=== PATIENT | female | born 2000 | race Two or more races ===

== ENCOUNTER 2024-08-25 05:17 | Observation (INO) | payer MEDICAID, SELFPAY ==
[2024-08-25] VITALS (53 sets, daily range): BP systolic 93–136; BP diastolic 51–76; PULSE 73–112; RESP 16–98; TEMP 36.6–36.9; O2SAT 94–100; BMI 39.7
--- NOTE | 2024-08-25 06:05 | XR_ITS ---
Examination: Complete OB ultrasound greater than 14 weeks Date and time of exam: August 25, 2024 0622 hrs. Indications: Beginning in labor 4:00 AM this morning with vaginal bleeding and pelvic contractions Findings: Viable intrauterine single fetus with single amniotic sac presentation cephalic Cardiac motion 138 BPM Placenta posterior grade 2, the technologist describes early placental abruption but there are no images with measurements or convincing abruption on this study Umbilical cord insertion seen Amniotic fluid index 13.2 cm spine maternal right posterior Cervix 2.9 cm Right ovary 4.3 x 2.1 x 2.9 cm arterial flow Left ovary obscured by bowel gas. Composite estimated gestational age based on BPD, head circumference, abdominal circumference, femur length is 29 weeks 4 days Estimated weight 1399 g. Survey of intracranial anatomy, spinal anatomy, abdominal anatomy, four-chamber heart performed with no abnormalities identified. Impression: Viable intrauterine gestation cephalic presentation Estimated gestational age 29 weeks 4 days Placenta posterior grade 2, recommend repeating this study at this time with multiple images of the placenta to exclude early placental abruption.
[2024-08-25] MEDS: BETAMET ACET/BETAMET NA PH (Celestone) 6 MG/ML VIAL 12 MG IM (08:25)
--- NOTE | 2024-08-25 08:50 | XR_ITS ---
Examination: Complete OB ultrasound greater than 14 weeks Date and time of exam: August 25, 2024 0908 hrs. Indications: Vaginal bleeding and pelvic cramping beginning yesterday, early abruption on OB Y sonogram August 25, 2024 0622 hrs. Findings: Viable intrauterine single fetus with single amniotic sac presentation cephalic Cardiac motion 153 BPM Placenta posterior grade 2 partial abruption inferior edge of the placenta Umbilical cord insertion seen Amniotic fluid index 12.4 cm Cervix 3.8 cm Right ovary 3.6 x 3.1 cm arterial flow Left ovary obscured by bowel gas. Composite estimated gestational age based on BPD, head circumference, abdominal circumference, femur length is 30 weeks 0 days Estimated weight 1430 g. Survey of intracranial anatomy, spinal anatomy, abdominal anatomy, four-chamber heart performed with no abnormalities identified. Impression: Viable intrauterine gestation cephalic presentation Inferior placenta abruption, sagittal image 58, measuring up to 30 mm in dimension, suggest continued follow-up
[2024-08-25 09:19] LABS: Basophils % (Auto) 0 % (0-2.5); Eosinophils # (Auto) 0.1 Thou/mm3 (0.0-0.5); Eosinophils % (Auto) 1 % (0-10); Hematocrit 34.7 % (36.0-46.0); Hemoglobin 11.8 g/dL (12.0-16.0); Immature Granulocytes % (Auto) 1 % (0-0); Immature Granulocytes Auto 0.06 Thou/mm3 (0.00-0.00); Lymphocytes % (Auto) 19 % (10-50); Mean Corpuscular Hemoglobin 29.9 pg (25.0-35.0); Mean Corpuscular Volume 88 fL (80-100); Monocytes # (Auto) 0.8 Thou/mm3 (0.0-0.8); Monocytes % (Auto) 8 % (0-12); Neutrophils # (Auto) 7.4 Thou/mm3 (1.8-7.7); Neutrophils % (Auto) 71 % (37-80); Nucleated Red Blood Cell % 0 /100 WBC (0); Platelet Count 248 Thou/mm3 (140-440); RDW Standard Deviation 41.6 fL (36.4-46.3); Red Blood Count 3.94 Miln/mm3 (4.00-5.20); White Blood Count 10.3 Thou/mm3 (3.6-11.0)
--- NOTE | 2024-08-25 11:06 | ESHP_ITS ---
RE: BILL MCDANIELS : 2000 DATE OF ADMISSION: 08/25/2024 HISTORY OF PRESENT ILLNESS: This is a 24-year-old 3, para 1-0-1-1 with due date of 11/10 with intrauterine at 29 weeks and 0 days who presents to labor and delivery complaining of spot of blood seen after voiding early this morning. The patient has subsequently had no bleeding noted. She denies any contractions. She reports normal movement. She denies any recent intercourse. US today shows a 3.0 cm placental abruption at the inferior edge of the posterior placenta. No placenta previa. ALLERGIES: NO KNOWN DRUG ALLERGIES. MEDICATIONS: multivitamin 1 p.o. daily. PAST MEDICAL HISTORY: Gallstones, migraine headaches. OBSTETRIC HISTORY: On 06/08/2022, 40-week normal vaginal delivery, 9 pound 10 ounce male, no complications. PAST SURGICAL HISTORY: Denies. PHYSICAL EXAMINATION: VITAL SIGNS: Blood pressure 132/84, heart rate 88, respirations 18, temperature 98.8. ABDOMEN: Gravid with fundus at 30 cm. Category 1 tracing with no contractions. 2 LUNGS: Clear to auscultation bilaterally. HEART: Regular rate and rhythm. PELVIC: No active bleeding noted. Cervix long and closed. EXTREMITIES: Nontender. ASSESSMENT: Intrauterine at 29 weeks and 0 days, third trimester vaginal bleeding possible placental abruption by US findings but clinically no sign of placenta abruption at this time. PLAN: 23 hour observation. Repeat OB sonogram tomorrow. Serial CBC. Type and Cross and Hold 2 u pRBC. Betamethasone for lung maturity. Continuous monitoring. Perineal Pad monitoring for bleeding. DT: 09:00:04 TT: 11:05:00 Ref: [id number] - TID: [id number] MTDD
[2024-08-26] VITALS (13 sets, daily range): BP systolic 89–118; BP diastolic 51–66; PULSE 78–111; RESP 18; TEMP 36.9–37.1
--- NOTE | 2024-08-26 06:00 | XR_ITS ---
Examination: Complete OB ultrasound greater than 14 weeks Date and time of exam: August 26, 2024 0719 hrs. Comparison August 25, 2024 0908 hrs. Indications: Vaginal bleeding beginning yesterday, placental abruption on earlier OB Y sonogram yesterday Findings: Viable intrauterine single fetus with single amniotic sac presentation cephalic Cardiac motion 140 BPM Placenta posterior grade 2 Placental abruption inferior left lateral aspect of the placenta, 3.3 x 1.5 x 3.0 cm Umbilical cord insertion seen Cervix 3.6 cm closed Right ovary 3.5 x 2.4 cm arterial flow Left ovary 2.8 x 2.3 cm arterial flow. Composite estimated gestational age based on BPD, head circumference, abdominal circumference, femur length is 28 weeks 5 days Estimated weight 1295 g. Survey of intracranial anatomy, spinal anatomy, abdominal anatomy, four-chamber heart performed with no abnormalities identified. Impression: Viable intrauterine gestation cephalic presentation Placenta posterior grade 2, placental abruption 3.3 x 1.5 x 3.0 cm.
--- NOTE | 2024-08-26 07:45 | ESPR_ITS ---
RE: BILL MCDANIELS : 2000 DATE OF SERVICE: 08/26/2024 SUBJECTIVE: The patient denies any vaginal bleeding. She reports occasional contractions. She reports normal movement. She denies any leaking. She has had a category 1 tracing throughout the night with no recurrent contractions. OBJECTIVE: Vital Signs: Blood pressure 118/66, heart rate 83, respirations 18, temperature 98.2. Lungs: Clear to auscultation bilaterally. Heart: Regular rate and rhythm. Abdomen: Gravid at 30 cm, nontender. Perineal patch shows no bleeding noted. Extremities: Nontender. ASSESSMENT: 1. Intrauterine at 29 weeks. 2. Third trimester vaginal bleeding, resolved. PLAN: Repeat OB ultrasound and check hemoglobin if stable. Discharge home after second dose of betamethasone today. Discharge instructions were given. DT: 06:26:19 TT: 07:43:00 Ref: [id number] - TID: [id number]
[2024-08-26 08:31] LABS: Basophils % (Auto) 0 % (0-2.5); Eosinophils % (Auto) 0 % (0-10); Hematocrit 32.6 % (36.0-46.0); Immature Granulocytes % (Auto) 1 % (0-0); Immature Granulocytes Auto 0.08 Thou/mm3 (0.00-0.00); Lymphocytes # (Auto) 1.9 Thou/mm3 (1.0-4.8); Lymphocytes % (Auto) 14 % (10-50); Mean Corpuscular HGB Conc 33.7 g/dl (31.0-37.0); Mean Corpuscular Hemoglobin 29.8 pg (25.0-35.0); Mean Corpuscular Volume 88 fL (80-100); Monocytes # (Auto) 0.8 Thou/mm3 (0.0-0.8); Monocytes % (Auto) 6 % (0-12); Neutrophils # (Auto) 10.4 Thou/mm3 (1.8-7.7); Neutrophils % (Auto) 79 % (37-80); Nucleated Red Blood Cell % 0 /100 WBC (0); Platelet Count 238 Thou/mm3 (140-440); RDW Standard Deviation 42.2 fL (36.4-46.3); Red Blood Count 3.69 Miln/mm3 (4.00-5.20); White Blood Count 13.2 Thou/mm3 (3.6-11.0)
[2024-08-26] MEDS: BETAMET ACET/BETAMET NA PH (Celestone) 6 MG/ML VIAL 12 MG IM (08:40)
[2024-08-26] MEDS: ACETAMINOPHEN 325 MG TABLET 650 MG PO (08:56)
--- NOTE | 2024-08-26 10:18 | ESPR_ITS ---
RE: BILL MCDANIELS : 2000 DATE OF SERVICE: 08/26/2024 SUBJECTIVE: The patient has had no vaginal bleeding and prefers to bed rest at home and return immediately if any vaginal bleeding. She denies any abdominal pain or or leaking or cramping. She reports normal movement. Vital signs are stable. She is afebrile. H and H is stable. No change in the size of the subchorionic hemorrhage. Clinically, no signs of abruption. PLAN: Second betamethasone and discharge home. Follow up in the office tomorrow for repeat ultrasound, NST, and return immediately if there is any vaginal bleeding. Discharge instructions given. DT: 10:05:24 TT: 10:17:00 Ref: [id number] - TID: [id number] MTDD
== END 2024-08-26 10:15 | disposition home or self-care (01) ==
PROVIDERS: Admitting Provider Specialist; Visit Provider Specialist
DX: O46.93 Antepartum hemorrhage, unspecified, third trimester (principal); Z3A.29 29 weeks gestation of pregnancy
CPT/HCPCS: 36415; 59025; 59899; 76805; 85025; 86850; 86900; 86901; 86923; 96372; J0702; A9270

== ENCOUNTER 2024-09-21 04:50 | Observation (INO) | payer MEDICAID, SELFPAY ==
--- NOTE | 2024-09-21 | XR_ITS ---
Examination: Complete OB ultrasound greater than 14 weeks Date and time of exam: August 26, 2024 0719 hours INDICATIONS: Vaginal bleeding today Findings: Viable intrauterine single fetus with single amniotic sac presentation cephalic Cardiac motion 138 BPM Placenta fundal posterior grade 2 no abruption Umbilical cord insertion seen. Amniotic fluid index 11.1 cm Surgeries 4.2 cm closed Ovaries obscured by bowel gas. Composite estimated gestational age based on BPD, head circumference, abdominal circumference, femur length is 33 weeks 6 days Estimated weight 2273.7 g. Survey of intracranial anatomy, spinal anatomy, abdominal anatomy, four-chamber heart performed with no abnormalities identified. Impression: Viable intrauterine gestation cephalic presentation Placenta fundal posterior grade 2 no abruption.
[2024-09-21 07:06] LABS: Collection Type, Urine Clean Catch
[2024-09-21 07:08] VITALS: BP 111/79
[2024-09-21 07:38] VITALS: BP 120/60; PULSE 94
[2024-09-21 07:47] VITALS: BMI 39.6
[2024-09-21 08:03] LABS: Bilirubin,Urine Negative (Negative); Blood,Urine Negative (Negative); Clarity,Urine Clear (Clear/Hazy); Color,Urine Yellow (Lt Yel-Yel); Glucose, Urine Negative (Negative); Ketones,Urine Negative (Negative); Leukocyte Esterase,Urine Positive (Negative); Nitrite,Urine Negative (Negative); PH,Urine 6.5 (5.0-7.0); Protein,Urine Trace (Neg - Trace); RBC,Urine 2 /hpf (0-3); Specific Gravity,Urine 1.024 (1.001-1.035); Squamous Epithelial Cell,Urine 2 /hpf (0-5); Urobilinogen,Urine Negative mg/dL (0.0-1.0); WBC,Urine 3 /hpf (0-5)
--- NOTE | 2024-09-21 08:11 | PC.NURSE ---
[facility] 0[facility] 0700.
== END 2024-09-21 08:00 | disposition home or self-care (01) ==
PROVIDERS: Admitting Provider Specialist; Visit Provider Specialist
DX: O26.853 Spotting complicating pregnancy, third trimester (principal); Z3A.33 33 weeks gestation of pregnancy
CPT/HCPCS: 59025; 59899; 76805; 81001

== ENCOUNTER 2024-09-22 16:54 | Observation (INO) | payer MEDICAID, SELFPAY ==
[2024-09-22 16:55] VITALS: BP 107/59; PULSE 102; RESP 16; RESP 98; TEMP 36.7; BMI 39.7
[2024-09-22 17:18] VITALS: BP 111/65; PULSE 96
--- NOTE | 2024-09-22 17:19 | XR_ITS ---
Examination: Complete OB ultrasound greater than 14 weeks Date and time of exam: September 22, 2024 1735 hours INDICATIONS: Onset vaginal bleeding beginning 2 days ago. Findings: Viable intrauterine single fetus with single amniotic sac presentation cephalic. Cardiac motion 157 BPM. Placenta posterior, fundal grade 2. Umbilical cord insertion seen. Amniotic fluid index 6.9 cm. spine maternal right. Cervix 4.3 cm. Ovaries are obscured by bowel gas.. Composite estimated gestational age based on BPD, head circumference, abdominal circumference, femur length is 33 weeks 6 days, estimated weight 2148 g. Survey of intracranial anatomy, spinal anatomy, abdominal anatomy, four-chamber heart performed with no abnormalities identified. Impression: Viable intrauterine gestation cephalic presentation Placenta posterior fundal grade 2, no abruption.
[2024-09-22 18:19] VITALS: BP 80/56; PULSE 90
[2024-09-22 18:20] VITALS: BP 85/55; PULSE 85
[2024-09-22 18:27] VITALS: BP 114/65; PULSE 89
== END 2024-09-22 19:15 | disposition home or self-care (01) ==
PROVIDERS: Admitting Provider Specialist; Visit Provider Specialist
DX: O46.93 Antepartum hemorrhage, unspecified, third trimester (principal); Z3A.33 33 weeks gestation of pregnancy
CPT/HCPCS: 59025; 59899; 76805

== ENCOUNTER 2024-11-03 22:54 | Inpatient (IN) | payer MEDICAID, SELFPAY ==
--- NOTE | 2024-11-01 08:53 | ESHP_ITS ---
RE: BILL MCDANIELS : 2000 DATE OF ADMISSION: 11/03/2024 HISTORY OF PRESENT ILLNESS: This is a 24-year-old 3, para 1-0-1-1 with a due date of 11/10/2024 with intrauterine at 39 weeks, who is admitted for induction of labor for high BMI and borderline macrosomia. The patient had an ultrasound with maternal medicine on 10/29/2024 showing overall growth at the 81st percentile with an abdominal circumference at the 89th percentile. She reports occasional contractions. She denies any leaking or bleeding. Her was complicated by a partial placental abruption resulting in hospitalization and betamethasone on 08/25/2024 and 08/26/2024. Subsequently, the abruption resolved. She has had no significant vaginal bleeding and she has a history of a prior delivery of a macrosomal infant at 9 pounds 10 ounces without complication. ALLERGIES: NO KNOWN DRUG ALLERGIES. MEDICATIONS: multivitamin 1 tablet p.o. daily. PAST MEDICAL HISTORY: Migraine headaches without aura, gallstones, recurrent loss with normal antiphospholipid antibody testing and maternal karyotype, rubella non- immune, obesity class III. PAST SURGICAL HISTORY: Denies. SOCIAL HISTORY: She denies any alcohol drug use or smoking. FAMILY HISTORY: Denies. OBSTETRIC HISTORY: 2021, 40-week, normal vaginal delivery, 9 pound 10 ounce male, no complication. REVIEW OF SYSTEMS: She denies any chest pain, palpitations, cough, fever, shortness of breath, or lower extremity pain. PHYSICAL EXAMINATION: VITAL SIGNS: Blood pressure 123/68, heart rate 88, respirations 18, temperature is 98.2, weight 258 pounds. HEENT: Oropharynx and sclerae are clear. LUNGS: Clear to auscultation bilaterally. HEART: Regular rate and rhythm. ABDOMEN: Gravid, consistent with estimated weight, 8.5 pounds. PELVIC: See RN notes. EXTREMITIES: Nontender. SKIN: No gross rashes or lesions. NEUROLOGIC: No focal deficit. ASSESSMENT AND PLAN: Intrauterine at 39 weeks on 11/03/2024, high BMI, borderline macrosomia, history of prior macrosomic delivery. PLAN: Induction of labor. Informed consent was obtained. The patient was made aware of the risks, complications, alternatives, benefits of the proposed procedure, and she agrees. She is aware of the risk of operative vaginal delivery and delivery and agrees with these modes of delivery if indicated. DT: 08:22:31 TT: 08:51:00 Ref: [id number] - TID: [id number] MTDD
[2024-11-03 22:58] VITALS: RESP 16
[2024-11-03 23:03] VITALS: BMI 42.6
[2024-11-03 23:11] VITALS: BP 115/76; PULSE 131
[2024-11-03 23:34] LABS: Basophils % (Auto) 0 % (0-2.5); Eosinophils # (Auto) 0.1 Thou/mm3 (0.0-0.5); Eosinophils % (Auto) 1 % (0-10); Hemoglobin 12.5 g/dL (12.0-16.0); Immature Granulocytes % (Auto) 1 % (0-0); Immature Granulocytes Auto 0.06 Thou/mm3 (0.00-0.00); Lymphocytes # (Auto) 2.4 Thou/mm3 (1.0-4.8); Lymphocytes % (Auto) 19 % (10-50); Mean Corpuscular HGB Conc 33.8 g/dl (31.0-37.0); Mean Corpuscular Hemoglobin 29.4 pg (25.0-35.0); Mean Corpuscular Volume 87 fL (80-100); Monocytes # (Auto) 0.9 Thou/mm3 (0.0-0.8); Monocytes % (Auto) 7 % (0-12); Neutrophils # (Auto) 9.2 Thou/mm3 (1.8-7.7); Neutrophils % (Auto) 72 % (37-80); Nucleated Red Blood Cell % 0 /100 WBC (0); Platelet Count 290 Thou/mm3 (140-440); RDW Standard Deviation 42.7 fL (36.4-46.3); Red Blood Count 4.25 Miln/mm3 (4.00-5.20); White Blood Count 12.8 Thou/mm3 (3.6-11.0)
[2024-11-03] MEDS: DINOPROSTONE 10 MG VAG.SUPP VAGINAL (23:50)
[2024-11-04] VITALS (241 sets, daily range): BP systolic 0–145; BP diastolic 0–84; PULSE 68–202; RESP 16–18; TEMP 36.6–36.9; O2SAT 79–99
[2024-11-04 00:18] LABS: Syphilis Nonreactive (Nonreactive)
--- NOTE | 2024-11-04 06:26 | PD.LDPN ---
Documentation for date of: 11/04/24 OB Labor Progress Note Pain Control Comments: None Pelvic Exam Comments: See RN notes, initial cervidil still in place Contractions Contraction frequency: irregular Status Comments: Category 1 . Assessment and Plan Comments: Continue Cervical Ripening Begin Pitocin when Guerin score 8 or more
[2024-11-04] MEDS: ACETAMINOPHEN 325 MG TABLET 650 MG PO (12:15)
[2024-11-04] MEDS: MISOPROSTOL 50 mCg TABLET PO (12:16)
[2024-11-04] MEDS: OXYTOCIN in NS 30 units 30 UNIT/500 ML BAG IV (19:54)
[2024-11-05] VITALS (54 sets, daily range): BP systolic 0–153; BP diastolic 0–88; PULSE 60–105; RESP 16–20; TEMP 36.6–36.8; O2SAT 91–99
[2024-11-05] MEDS: ACETAMINOPHEN 325 MG TABLET 650 MG PO ×3 (00:40→23:54)
[2024-11-05] MEDS: fentaNYL CIT INJ 50 mCg/ML AMP 2ML 100 MCG IV (01:35)
[2024-11-05] MEDS: RINGERS LACTATED 1000 ML 1,000 ML 100 ML IV (02:18)
[2024-11-05] MEDS: LIDOCAINE HCL 1% 20 ML VIAL INFL (03:38)
[2024-11-05] MEDS: IBUPROFEN TAB 400 MG TABLET 800 MG PO ×2 (03:39→13:07)
[2024-11-05] MEDS: OXYTOCIN in NS 20 units 20 UNIT/1,000 ML BAG 125 UNIT IV (03:40)
--- NOTE | 2024-11-05 03:41 | PD.LDDELS ---
Data ([facility]) Data : 3 Para: 1 Term: 1 : 0 : 1 Delivery Data ([facility]) Labor Data ROM Date: 11/05/24 ROM Time: 03:15 Rupture Type: AROM Amniotic Fluid: Clear Delivery Data EDC: 11/10/24 EDC calculated by:: LMP/early US confirmation Labor Onset Stage 1 Date: 11/05/24 Labor Onset Stage 1 Time: 00:31 Labor Onset Stage 2 Date: 11/05/24 Labor Onset Stage 2 Time: 02:47 Delivery Date: 11/05/24 Delivery Time: 03:17 Gestational age (weeks): 39 Gestational age (days): 2 Placenta Delivery Date: 11/05/24 Placenta Delivery Time: 03:22 Delivered by: Anjel Wan Delivery nurse: Pretty Snider Other staff at delivery: Nursery Nurse Other staff at delivery: Nursery Nurse Other staff at delivery: Malu Marte Other staff at delivery: Jazmyn Clay Delivery Method Delivery: Vaginal Delivery Type: Spontaneous Presentation: Vertex Position: OA Anesthesia Type Primary Anesthesia: None Secondary Anesthesia: Local Placenta Placenta Delivery: Spontaneous Placenta Cultures Obtained: No Placenta Sent for Examination: No Cord Sample: Cord Blood Obtained Lacerations #1: Perineal: 2nd degree Perineal repair Sutures used for repair: 3.0 Chromic EBL Estimated blood loss (ml): 200 Umbilical Cord Umbilical Vessels: 3 Nuchal Cord: Not Applicable Body Cord: Not Applicable Additional Procedures None Complications Complications: None [place] Data ([facility]) [place] Data Gender: Female Weight Grams: 4050 1 Minute Total: 8 5 Minute Total: 9
--- NOTE | 2024-11-05 03:42 | ESDS_ITS ---
DS: Providers Provider Date of admission: 11/03/24 22:54 Primary care physician: Cristian Benson PA-C Admitting Provider: Anjel Wan MD Attending Provider on Admission: Anjel Wan MD Attending Provider on DC: Anjel Wan MD Discharging Provider: Anjel Wan MD DS: Diagnosis Problem List Completed Was Problem List Reviewed/Reconciled?: Yes Summary/Hosp Course Time Spent with Patient Time attestation: Total time spent providing and/or coordinating discharge services: Exam Vital Signs Temp Pulse Resp BP Pulse Ox 98.1 F 71 18 139/67 H 97 11/05/24 01:09 11/05/24 03:35 11/05/24 01:09 11/05/24 03:35 11/05/24 02:50 Discharge Plan Plan Patient Disposition: HOME (Self Care) Patient condition on transfer: Stable Prescriptions/Referrals Prescriptions/Med Rec: New ibuprofen 600 mg tablet 600 mg PO Q6H PRN (Reason: pain) Qty: 30 0RF Continued PNV [id number] fumarate-FA [] 28 mg iron- 800 mcg tablet 1 tab PO DAILY Patient Comments: TAKE 1 TABLET BY MOUTH EVERY DAY Referrals: Cristian Benson PA-C [Primary Care Provider] - Patient/Caregiver Discharge Instructions Discharge Activity: activity as tolerated Other Discharge Activity Instructions:: Follow up office 6 weeks Education Materials: After a Vaginal , Breast Care After , Nutrition While Print Language: [place] Stand Alone Forms: Samantha Award Info., Patient Portal Info Letter Discharge Order Discharge Orders: Discharge (Routine); Ordered 11/06/24 Ordered By: Anjel Wan Planned Discharge Date 11/06/24
[2024-11-05] MEDS: BENZO/LANO/ALOE (Dermoplast) 60 GM CAN 1 SPRAY TOP (04:19)
[2024-11-05] MEDS: ACETAMINOPHEN 325 MG TABLET PO (08:22)
[2024-11-05 09:23] LABS: Basophils % (Auto) 0 % (0-2.5); Eosinophils % (Auto) 0 % (0-10); Hematocrit 33.9 % (36.0-46.0); Hemoglobin 11.5 g/dL (12.0-16.0); Immature Granulocytes % (Auto) 0 % (0-0); Immature Granulocytes Auto 0.06 Thou/mm3 (0.00-0.00); Lymphocytes # (Auto) 1.6 Thou/mm3 (1.0-4.8); Lymphocytes % (Auto) 11 % (10-50); Mean Corpuscular HGB Conc 33.9 g/dl (31.0-37.0); Mean Corpuscular Hemoglobin 29.4 pg (25.0-35.0); Mean Corpuscular Volume 87 fL (80-100); Monocytes # (Auto) 0.9 Thou/mm3 (0.0-0.8); Monocytes % (Auto) 6 % (0-12); Neutrophils # (Auto) 12.2 Thou/mm3 (1.8-7.7); Neutrophils % (Auto) 83 % (37-80); Nucleated Red Blood Cell % 0 /100 WBC (0); Platelet Count 261 Thou/mm3 (140-440); RDW Standard Deviation 42.5 fL (36.4-46.3); Red Blood Count 3.91 Miln/mm3 (4.00-5.20); White Blood Count 14.8 Thou/mm3 (3.6-11.0)
[2024-11-05] MEDS: DOCUSATE SOD 100 MG CAPSULE PO (12:10)
[2024-11-06 05:27] VITALS: BP 113/74; PULSE 80; RESP 16; TEMP 36.6; O2SAT 97
--- NOTE | 2024-11-06 06:15 | PC.NURSE ---
@0219 Dr. Wan @ bedside. Per Dr. Wan, pt can be discharged today if baby is okay to be discharged today as well
--- NOTE | 2024-11-06 06:53 | ESPR_ITS ---
RE: BILL MCDANIELS : 2000 DATE OF SERVICE: 11/06/2024 day #1. The patient denies any problem or complaint. She is voiding. She is ambulating. She is tolerating diet. She is passing flatus. She denies any excessive vaginal bleeding. She denies any dizziness or lightheadedness. She denies any chest pain, palpitations, shortness of breath or lower extremity pain. O: Vital Signs: Blood pressure 113/74, heart rate 80, respirations 16, temperature is 97.9, pulse ox is 97% on room air. Lungs: Clear to auscultation bilaterally. Heart: Regular rate and rhythm. Abdomen: Fundus is firm. Extremities: Nontender. Hemoglobin pre-delivery is 12.5, post delivery 11.5. ASSESSMENT: day #1 status post spontaneous vaginal delivery. PLAN: Discharge home when baby is cleared. Discharge instructions given. Follow up in the office in six weeks. DT: 06:34:39 TT: 06:52:00 Ref: [id number] - TID: [id number]
[2024-11-06 08:00] VITALS: BP 114/65; PULSE 68; RESP 17; TEMP 36.8; O2SAT 97
[2024-11-06] MEDS: DOCUSATE SOD 100 MG CAPSULE PO (08:06)
== END 2024-11-06 10:48 | disposition home or self-care (01) | DRG 560 ==
LOC: S4SX 11-05 03:38 → S4NX 11-05 05:55
PROVIDERS: Admitting Provider Specialist; PCP Physician Assistant; Visit Provider Specialist
DX: O36.63X0 Maternal care for excessive fetal growth, third trimester, not applicable or unspecified (principal); Z37.0 Single live birth; Z3A.39 39 weeks gestation of pregnancy; O70.1 Second degree perineal laceration during delivery; O45.93 Premature separation of placenta, unspecified, third trimester; N96 Recurrent pregnancy loss; O99.214 Obesity complicating childbirth; E66.813 Obesity, class 3
CPT/HCPCS: 36415; 59409; 85025; 86780; 86850; 86900; 86901; 94762; J2590; J3010; J3490; J7120; A9270